=== PATIENT | female | born 1970 | race Caucasian/White ===

== ENCOUNTER 2016-06-14 09:11 | Day surgery (SDC) | payer MEDICARE, MEDICAID ==
[~2016-06-14 09:11] MED LIST: ATIVAN1 M2 PO; CYCLOBENZAPRINE5 M1 PO
[2016-06-15] MEDS ORDERED: NORCO 5-325 TA1 EACH PO (07:18)
[2016-06-15] MEDS ORDERED: KEFLEX500 M4 PO (07:19)
== END 2016-06-15 10:50 ==
LOC: WSU 09:11 → SHSB 09:13 → ORW 11:08 → PACU 14:24 → 5WD 16:40
PROC: 0HBV0ZZ Excision of Bilateral Breast, Open Approach (ICD-10-PCS; principal; 2016-06-14)
DX: N62 Hypertrophy of breast (principal); D24.2 Benign neoplasm of left breast; D18.09 Hemangioma of other sites; G40.909 Epilepsy, unspecified, not intractable, without status epilepticus; M19.90 Unspecified osteoarthritis, unspecified site; F41.9 Anxiety disorder, unspecified; Z79.899 Other long term (current) drug therapy; Z88.8 Allergy status to other drugs, medicaments and biological substances; Z87.891 Personal history of nicotine dependence; Z90.710 Acquired absence of both cervix and uterus; Z90.49 Acquired absence of other specified parts of digestive tract; Z98.1 Arthrodesis status; Z98.890 Other specified postprocedural states
CPT/HCPCS: J0690; J1170; J2250; J2405; J3010